=== PATIENT | male | born 1975 | race Caucasian/White ===

== ENCOUNTER 2022-12-25 00:59 | Emergency (ER) | payer MEDICAID, SELFPAY ==
[2022-12-25] VITALS (47 sets, daily range): BP systolic 82–163; BP diastolic 64–94; PULSE 66–109; RESP 8–26; TEMP 37.1; O2SAT 88–99
--- NOTE | ~2022-12-25 | XR_ITS ---
EXAMINATION: XR ribs RT 2V w CXR 2V DATE: 12/25/2022 02:43 INDICATION: Right anterior rib pain. TECHNIQUE: Frontal and lateral views of the chest and 2 views on 3 radiographs of the right ribs were obtained. COMPARISON: None. FINDINGS: CHEST TWO VIEWS: There is no pneumonia, pleural effusion, or pneumothorax. The heart size is normal. RIGHT RIBS: There is no rib fracture. IMPRESSION: 1. No rib fracture. Reviewed, dictated and finalized at location A. N RESOURCES ADMIN IMPRESSION: 1. No rib fracture.
--- NOTE | 2022-12-25 01:01 | ECG_ITS ---
Measurements Intervals [place] Rate: 103 P: 45 NE: 183 QRS: -8 QRSD: 118 T: 8 QT: 355 QTc: 465 Interpretive Statements SINUS TACHYCARDIA INCOMPLETE RIGHT BUNDLE BRANCH BLOCK [90+ ms QRS DURATION, TERMINAL R IN V1/V2, 40+ ms S IN I/aVL/V4/V5/V6] ABNORMAL RHYTHM ECG NO PREVIOUS ECG AVAILABLE FOR COMPARISON Electronically Signed On 12-25-2022 14:52:26 [employer] by Manuela Nichole M.D.
[2022-12-25 01:09] LABS: Glucose Point of Care 201 mg/dl (65-105)
--- NOTE | 2022-12-25 02:29 | ED.AMS ---
HPI - Altered Mental Status General Chief Complaint: Altered Mental Status <TEODORO Tavares Last Filed: 12/25/22 04:57> Stated Complaint: decreased responsiveness <TEODORO Tavares Last Filed: 12/25/22 04:57> Time Seen by Provider: 12/25/22 02:05 <TEODORO Tavares Last Filed: 12/25/22 04:57> Source: patient and EMS <TEODORO Tavares Last Filed: 12/25/22 04:57> Mode of arrival: EMS <TEODORO Tavares Last Filed: 12/25/22 04:57> Limitations: no limitations <TEODORO Tavares Last Filed: 12/25/22 04:57> History of Present Illness HPI narrative: Patient is a 47-year-old male who presents the ED via EMS with report of an overdose. Per EMS report, they were called to residents with report of possible cardiac arrest, decreased responsiveness. Patient's girlfriend contacted EMS and reportedly began CPR while waiting for EMS. Patient was noted to have snoring respirations, pinpoint pupils. 2 mg Narcan intranasally was given with no significant change in patient's status. They established an IV and administered 2 more mg of Narcan IV. Patient became more alert and awake. He was then brought here for further evaluation. Patient reports he had bought what he believed to be cocaine. He had snorted a small amount prior to this occurring. The next thing he remembered was waking up to the paramedics surrounding him. He did not intend to do or buy opioids/heroin/fentanyl. He was not trying to harm himself. He denies any IVDA. He complains of some pain to his right lateral rib cage and fatigue currently, denies difficulty breathing, headache, nausea, vomiting, abdominal pain, dizziness, lightheadedness, vision changes. <TEODORO Tavares Last Filed: 12/25/22 04:57> Related Data Allergies/Adverse Reactions: Allergies Allergy/AdvReac Type Severity Reaction Status Date / Time Penicillins Allergy Rash Verified 12/25/22 03:49 <Inna Hathaway PA-C - Last Filed: 12/25/22 04:57> Review of Systems Review of Systems: CONSTITUTIONAL: Denies fever, chills, or sweats. EYES: Denies visual changes.. CARDIOVASCULAR: Denies chest pain. RESPIRATORY: Denies cough or dyspnea. GASTROINTESTINAL: Denies abdominal pain, nausea, vomiting. GENITOURINARY: Denies dysuria or hematuria. SKIN: Denies rash or itching. MUSCULOSKELETAL: See HPI. NEUROLOGIC: Denies dizziness, lightheadedness, headache, numbness, or weakness. <Inna Hathaway PA-C - Last Filed: 12/25/22 04:57> All systems reviewed & are unremarkable except as noted in HPI and below <Inna Hathaway PA-C - Last Filed: 12/25/22 04:57> [facility] Past Medical History Medical History: Medical History (Updated 12/25/22 @ 04:25 by Inna Hathaway PA-C) No pertinent past medical history <Inna Hathaway PA-C - Last Filed: 12/25/22 04:57> Surgical History Surgical History: Surgical History (Updated 12/25/22 @ 02:35 by Inna Hathaway PA-C) No pertinent past surgical history <Inna Hathaway PA-C - Last Filed: 12/25/22 04:57> Social History Social History: Social History (Updated 12/25/22 @ 02:36 by Inna Hathaway PA-C) Substance use: current Substance use type: crack/cocaine <Inna Hathaway PA-C - Last Filed: 12/25/22 04:57> Exam Narrative: GENERAL: Well appearing, obese, non-toxic, in no acute distress. HEAD: Normocephalic, atraumatic. NECK: Supple. No adenopathy, no masses. No midline spinal tenderness. RESPIRATORY: Airway patent, respirations nonlabored. Clear to auscultation bilaterally, no rales, rhonchi, wheezing. CARDIOVASCULAR: Regular rate and rhythm without murmurs, rubs, or gallops. Peripheral pulses 2+ and equal bilaterally. ABDOMINAL: Soft, nontender, nondistended, no hepatosplenomegaly. Normoactive BS. MUSCULOSKELETAL: Moves all extremities. Strength/ROM intact without gross deformitie
[2022-12-25] MEDS: ONDANSETRON INJ 4 MG/2 ML VIAL IV PUSH (03:50)
[2022-12-25] MEDS: NALOXONE HCL 0.4 MG/ML VIAL IV PUSH (03:51)
--- NOTE | 2022-12-25 06:30 | PC.NURSE ---
Pt ambulated around ED and became light head and unsteady on feet. Pt sat into wheelchair that he was pushing. Pt assisted back into back with VSS. Dr. Muhammad made aware no new orders at this time.
--- NOTE | 2022-12-25 07:13 | PC.NURSE ---
Report given to GILES Gomez.
== END 2022-12-25 08:04 | disposition home or self-care (01) ==
PROVIDERS: Emergency Provider Physician Assistant
DX: T40.2X1A Poisoning by other opioids, accidental (unintentional), initial encounter (principal)
CPT/HCPCS: 71046; 71100; 82948; 93005; 96374; 96375; 99284; J2310; J2405